=== PATIENT | male | born 1935 | race Caucasian/White ===

== ENCOUNTER → 2018-01-28 | Outpatient (CLI) | payer OTHER ==
[~2018-01-28] VITALS: Ht 160 cm; Wt 77.1 kg
[~2018-01-28] MED LIST: ASPIR 8181 MG PO; CENTRUM SILVER1 EAC4 PO; COMBIVENT INH; COZAAR 50 MG TA50 M2 PO; FLONASE 0.05%50 MCG NASAL; LIPITOR10 MG PO; MAGOX 400400 MG PO; MELATONIN5 M1 PO; METOPROLOL SUCC50 MG PO; MIRALAX17 GM PO; NIFEDIPINE ER90 M1 PO; PEPCID20 MG PO; POTASSIUM CHLO10 MEQ PO; PROTONIX40 M1 PO; QVAR8.7 G1 INH; REFRESH TEARS15 ML OPHTHALMIC; SEREVENT DISKU50 MCG INH; SINGULAIR 10 MG10 M1 PO; STOOL SOFTENER100 M1 PO; VITAMIN B COMP1 EACH PO; VITAMIN D-32000 UNIT PO
--- NOTE | ~2018-01-28 | P ---
[facility] [address] [address] [place] [address] PROCEDURE REPORT Name: LUCA GALLAGHER Room #: REG [facility] Ellen#: [id number] Admission: 01/28/18 Attend Phys: Jordon Longoria Discharge: Date of : 31 Report #: [id number] THIS REPORT FOR: //name// CC: Jordon Zhang [facility] unknown DATE OF SERVICE: 01/28/2018 PROCEDURE PERFORMED: Upper endoscopy with esophageal dilation. HISTORY OF PRESENT ILLNESS: The patient is an 82-year-old male with history of gastroesophageal reflux disease and dysphagia. Plan is for EGD with dilation. DESCRIPTION OF PROCEDURE: The risks and benefits of the procedure were explained to the patient, those risks including but not limited to bleeding, perforation, the risk of sedation. He understood these risks and gave informed consent. Sedation was given using propofol per anesthesia. Next, using a standard Olympus upper endoscope, the scope was placed in the patient's mouth and advanced under direct vision through the esophagus, stomach and into the second portion of the duodenum. There was some mild narrowing in the upper esophagus, otherwise normal mid esophagus. GE junction was normal. Overall, the gastric mucosa was normal. The pylorus was normal and patent. The duodenal bulb, first and second portion were all normal. The scope was then brought back up into the patient's stomach and a Savary guidewire was inserted through the scope, leaving the guidewire in place as the scope was then withdrawn. Next, a 51-Martiniquais Savary dilation was performed without difficulty. The wire and dilator removed. The scope was reintroduced into the patient's stomach. There was a small mucosal tear in the proximal esophagus. No evidence of bleeding. The scope was then withdrawn and the procedure terminated. The patient tolerated the procedure well. IMPRESSION: 1. Mild narrowing of proximal esophagus, status post dilation. 2. Otherwise, normal upper endoscopy. RECOMMENDATIONS: 1. Observe the patient post-dilation. 2. Continue current antacid regimen. Thank you for allowing me to participate in his care. <ELECTRONICALLY SIGNED> By: Jordon Zhang MD 02/06/18 [id number] [id number] 1226 Jordon Zhang MD /nt
--- NOTE | ~2018-01-28 | S ---
[facility] [place] [address] SURGICAL PATH RPT PROCEDURE Name: LUCA GALLAGHER Room #: REG [facility]#: [id number] Admission: 01/28/18 Date of : 31 Discharge: Report #: [id number] Path Case #: [id number] PATHOLOGY REPORT COLLECTION DATE: 01/28/2018 RECEIVED DATE: 01/28/2018 SUBMITTING PHYS: Dr. Jordon Zhang OTHER PHYS: SPECIMEN(S) RECEIVED: A.Ascending colon polyp bx B.Random colon biopsies R/O microscopic colitis C.Transverse colon polyp bx * * * * * * * * * * * * FINAL DIAGNOSIS: A. "Ascending colon polyp BX", biopsy: - Tubular adenoma; no high grade dysplasia. B. "Random colon biopsies R/O microscopic colitis", biopsy: - Colonic mucosa with mild reactive changes; no evidence of active, lymphocytic or collagenous colitis. C. "Transverse colon polyp BX", biopsy: - Colonic mucosa with focal hyperplastic change, consistent with hyperplastic polyp. (CLW:mmdamon; 01/29/2018) PATHOLOGIST: Elis Escoto M.D. REPORT ELECTRONICALLY SIGNED BY: Elis Escoto M.D. DATE/TIME: 01/29/2018 22:09 * * * * * * * * * * * * GROSS PATHOLOGY: A. Received in formalin labeled "Luca Gallagher, ascending colon polyp BX," is a segment of silva soft tissue measuring 0.5 x 0.3 x 0.1 cm in maximum dimension. The specimen is submitted entirely in cassette A1. B. Received in formalin labeled "Luca Gallagher, random colon biopsies rule out microcolitis," are multiple segments of silva soft tissue measuring 1.6 x 0.6 x 0.2 cm in aggregate dimensions. The specimen is submitted entirely in cassette B1. C. Received in formalin labeled "Luca Gallagher, transverse colon polyp BX," is a segment of silva soft tissue measuring 0.5 x 0.3 x 0.1 cm in maximum dimension. The specimen is submitted entirely in cassette C1. (SDY; 01/28/2018) [address] [address] SURGICAL PATH RPT PROCEDURE Name: LUCA GALLAGHER E Room #: REG [facility]#: [id number] Admission: 01/28/18 Date of : 31 Discharge: Report #: [id number] Path Case #: [id number] CLINICAL HISTORY: Dysphagia, change in bowel habits, history colon polyps Dysphasia INITIAL CPT CODE(S): A; 67981 B; 83093 C; 09201 Professional services performed by [facility] at [address], [place] [address] Technical services performed by [facility] at [address] [place] [address], [address], [place] [address]. [facility] [address] [address] PHONE: [phone] DIRECTOR: Silas Fields M.D. * * * END OF REPORT * * *
--- NOTE | ~2018-01-28 | P ---
[facility] El[place] [address] PROCEDURE REPORT Name: LUCA GALLAGHER Room #: REG [facility]#: [id number] Admission: 01/28/18 Attend Phys: Jordon Longoria Discharge: Date of : 31 Report #: [id number] THIS REPORT FOR: //name// CC: Jordon Zhang [facility] unknown DATE OF SERVICE: 01/28/2018 PROCEDURE PERFORMED: Colonoscopy with biopsies. HISTORY OF PRESENT ILLNESS: The patient has a history of colon polyps. He does report a change in bowel habits. He has intermittent loose stools. He has difficulty with fecal evacuation at times. He complains of abdominal bloating. No family history of colon cancer. He denies any blood in his stools. DESCRIPTION OF PROCEDURE: The risks and benefits of the procedure were explained to the patient, those risks including but not limited to bleeding, perforation, the risk of sedation. He understood these risks and gave informed consent. Sedation was given using propofol per anesthesia. Next, a digital rectal exam showed a mildly narrowed anal canal. I was able to dilate this manually or digitally, otherwise normal. Next, using a standard Olympus colonoscope, the scope was placed in the patient's anus and advanced under direct vision to the cecum. The overall prep was excellent. The cecum and ileocecal valve were normal in appearance. In the ascending colon, a 3 mm sessile polyp was noted. This was removed with cold forceps, otherwise normal. Transverse colon, 4 mm sessile polyp also removed with cold forceps. Descending colon was normal. Multiple diverticula were noted throughout the sigmoid colon. The rectal mucosa was normal. On retroflexion, no abnormalities were noted. The scope was then withdrawn and the procedure terminated. Random colon biopsies were also obtained to rule out the possibility of microscopic colitis. The patient tolerated the procedure well. IMPRESSION: 1. Mild narrowing of the anal sphincter. 2. Two small colonic polyps. 3. Sigmoid diverticulosis. RECOMMENDATIONS: 1. Await biopsy results. 2. Due to the patient's age, repeat colonoscopy is not needed in the future. [address] [address] PROCEDURE REPORT Name: LUCA GALLAGHER Room #: REG [facility] Ellen#: [id number] Admission: 01/28/18 Attend Phys: Jordon Longoria Discharge: Date of : 31 Report #: [id number] Thank you for allowing me to participate in his care. <ELECTRONICALLY SIGNED> By: Jordon Zhang MD 02/06/18 0804 [id number] 1214 Jordon Zhang MD /nt
== END | disposition home or self-care (01) ==
LOC: GI 08:56
DX: D12.2 Benign neoplasm of ascending colon (principal); K63.5 Polyp of colon; K63.89 Other specified diseases of intestine; K62.4 Stenosis of anus and rectum; K57.30 Diverticulosis of large intestine without perforation or abscess without bleeding; K22.2 Esophageal obstruction; I10 Essential (primary) hypertension; I73.89 Other specified peripheral vascular diseases; E78.5 Hyperlipidemia, unspecified; Z95.0 Presence of cardiac pacemaker; Z86.010 Personal history of colon polyps; Z85.46 Personal history of malignant neoplasm of prostate; Z98.890 Other specified postprocedural states; Z90.49 Acquired absence of other specified parts of digestive tract; Z98.41 Cataract extraction status, right eye; Z98.42 Cataract extraction status, left eye; Z88.6 Allergy status to analgesic agent; Z88.8 Allergy status to other drugs, medicaments and biological substances; Z79.82 Long term (current) use of aspirin; Z79.899 Other long term (current) drug therapy
CPT/HCPCS: 62110; 62900